=== PATIENT | female | born 1990 | race Caucasian/White ===

== ENCOUNTER 2019-08-28 10:13 | Outpatient (CLI) | payer OTHER ==
[2019-08-28 10:07] VITALS: BP 120/67
== END 2019-08-28 11:50 | disposition home or self-care (01) ==
LOC: LDOP 10:13
PROVIDERS: ATTEND Student in an Organized Health Care Education/Training Program
DX: O26.893 Other specified pregnancy related conditions, third trimester (principal); Z3A.37 37 weeks gestation of pregnancy
CPT/HCPCS: 59025; 84112; 99201; G0463

== ENCOUNTER 2019-09-07 01:25 | Inpatient (IN) | payer OTHER ==
[~2019-09-07] VITALS: Ht 165.1 cm; Wt 91.0 kg
[2019-09-07] MEDS ORDERED: FENTANYL/BUPIV./NS/PF 250 ML EPIDCONT SCH ×2 (03:38→04:22)
[2019-09-07] MEDS ORDERED: LACTATED RINGERS 1,000 ML IV SCH ×2 (03:38→04:22)
[2019-09-07] MEDS ORDERED: D5%-LACTATED RINGERS 1,000 ML IV SCH (03:38)
[2019-09-07] MEDS ORDERED: OXYTOCIN 30U/ 0.9% NaCL 500ML 500 ML IV PRN (03:38)
[2019-09-07] MEDS ORDERED: OXYTOCIN 30U/ 0.9% NaCL 500ML 500 ML IV ONE (03:38)
[2019-09-07] MEDS ORDERED: NEWBORN KIT ONE (03:47)
[2019-09-07] MEDS ORDERED: OXYTOCIN 30U/ 0.9% NaCL 500ML 500 ML ONE (03:48)
[2019-09-07] MEDS ORDERED: FENTANYL PF 100 MCG/2ML IVPush PRN (04:00)
[2019-09-07] MEDS ORDERED: TERBUTALINE 1 MG/ML, 1ML SQ PRN (04:00)
[2019-09-07] MEDS ORDERED: FENTANYL PF 100 MCG/2ML IV PRN (04:00)
[2019-09-07] MEDS ORDERED: PLEASE ENTER HEIGHT AND WEIGHT MC SCH (04:00)
[2019-09-07] MEDS ORDERED: TERBUTALINE 1 MG/ML, 1ML IVPush PRN (04:00)
[2019-09-07] MEDS ORDERED: ONDANSETRON 2MG/ML, 2ML IVPush PRN (04:00)
[2019-09-07] MEDS ORDERED: LACTATED RINGERS 500 ML IVBOLUS PRN (04:00)
[2019-09-07] MEDS ORDERED: CALCIUM CARBONATE 500 MG TAB.CHEW PO PRN (04:00)
[2019-09-07 04:06] LABS: BASOPHILS # (AUTO) 0.05 x10^3/uL (0-0.1); BASOPHILS % (AUTO) 0 % (0-1); EOSINOPHILS # (AUTO) 0.13 x10^3/uL (0-0.4); EOSINOPHILS % (AUTO) 1 % (1-7); LYMPHOCYTES # (AUTO) 1.36 x10^3/uL (1-3.4); LYMPHOCYTES % (AUTO) 10 % (22-44); MD NO; MEAN CORPUSCULAR HEMOGLOBIN 31.2 pg (27.0-34.8); MEAN CORPUSCULAR VOLUME 94.4 fL (80-100); MEAN PLATELET VOLUME 8.8 fL (7.4-10.4); MONOCYTES # (AUTO) 0.79 x10^3/uL (0.2-0.8); MONOCYTES % (AUTO) 6 % (2-9); NEUTROPHILS # (AUTO) 11.24 x10^3/uL (1.8-6.8); NEUTROPHILS % (AUTO) 83 % (42-75); PLATELET COUNT 262 x10^3/uL (130-400); RED BLOOD COUNT 4.38 x10^6/uL (3.82-5.3); RED CELL DISTRIBUTION WIDTH 13.3 % (9.6-15.2)
[2019-09-07] MEDS ORDERED: BUPIVACAINE 0.25% ONE ×2 (04:28→04:31)
[2019-09-07] MEDS ORDERED: NALOXONE 0.4 MG/ML, 1ML IVPush PRN (04:30)
[2019-09-07] MEDS ORDERED: EPHEDRINE 50 MG/ML, 1ML IVPush PRN (04:30)
[2019-09-07] MEDS ORDERED: FENTANYL PF 500 MCG, BUPIVACAINE/PF 0.5%, 30ML 62.5 ML in SODIUM CHLORIDE 0.9% 177.5 ML EPIDCONT SCH (04:30)
[2019-09-07] MEDS ORDERED: LACTATED RINGERS 1,000 ML IVBOLUS PRN (04:30)
[2019-09-07] MEDS: OXYTOCIN 30U/ 0.9% NaCL 500ML 500 ML IV SCH ×2 (11:07→21:07)
[2019-09-07] MEDS ORDERED: ONDANSETRON 2MG/ML, 2ML IV PRN (11:30)
[2019-09-07] MEDS ORDERED: OXYcodone/APAP 5/325MG TABLET PO PRN ×2 (11:30)
[2019-09-07] MEDS ORDERED: METOCLOPRAMIDE 5 MG/ML, 2ML IV PRN (11:30)
[2019-09-07] MEDS ORDERED: BISACODYL 10 MG SUPP PR PRN (11:30)
[2019-09-07] MEDS ORDERED: ACETAMINOPHEN 325 MG TABLET PO PRN (11:30)
[2019-09-07] MEDS ORDERED: METHYLERGONOVINE 0.2 MG/ML IM PRN (11:30)
[2019-09-07] MEDS ORDERED: GLYCERIN ADULT SUPP PR PRN (11:30)
[2019-09-07] MEDS ORDERED: IBUPROFEN 800 MG TABLET PO PRN (11:30)
[2019-09-07] MEDS ORDERED: CARBOPROST TROMETHAMINE 250 MCG/ML, 1ML IM PRN (11:30)
[2019-09-07] MEDS ORDERED: MISOPROSTOL 200 MCG TABLET PR PRN (11:30)
[2019-09-07] MEDS ORDERED: SIMETHICONE 80 MG CHEW TAB PO PRN (11:30)
[2019-09-07] MEDS ORDERED: IBUPROFEN 600 MG TABLET ONE (11:45)
[2019-09-07] MEDS: IBUPROFEN 600 MG TABLET PO PRN ×3 (11:47→23:55)
[2019-09-07 13:05] VITALS: BP 107/69
[2019-09-07 17:15] VITALS: BP 103/64
[2019-09-07 19:20] VITALS: BP 103/62
[2019-09-07 19:58] LABS: BASOPHILS % (AUTO) 0 % (0-1); EOSINOPHILS # (AUTO) 0.05 x10^3/uL (0-0.4); EOSINOPHILS % (AUTO) 1 % (1-7); LYMPHOCYTES % (AUTO) 12 % (22-44); MD NO; MEAN CORPUSCULAR HGB CONC 33.1 g/dL (32.4-35.8); MEAN CORPUSCULAR VOLUME 93.6 fL (80-100); MEAN PLATELET VOLUME 8.5 fL (7.4-10.4); MONOCYTES # (AUTO) 0.75 x10^3/uL (0.2-0.8); MONOCYTES % (AUTO) 7 % (2-9); NEUTROPHILS # (AUTO) 9.05 x10^3/uL (1.8-6.8); NEUTROPHILS % (AUTO) 80 % (42-75); PLATELET COUNT 213 x10^3/uL (130-400); RED BLOOD COUNT 3.75 x10^6/uL (3.82-5.3); RED CELL DISTRIBUTION WIDTH 13.5 % (9.6-15.2)
[2019-09-07] MEDS: DOCUSATE 100 MG CAPSULE PO PRN (20:55)
[2019-09-07] MEDS ORDERED: RHOGAM FROM BLOOD BANK 1 NOTE EA IM/IV ONE (21:00)
[2019-09-07 23:44] VITALS: BP 117/68
[2019-09-08 03:59] VITALS: BP 106/65
[2019-09-08 08:15] VITALS: BP 120/80
[2019-09-08] MEDS ORDERED: PRENATAL VIT/IRON/FA 1 EACH TABLET PO SCH (09:00)
[2019-09-08] MEDS: IBUPROFEN 600 MG TABLET PO PRN ×2 (09:01→15:28)
[2019-09-08] MEDS: DOCUSATE 100 MG CAPSULE PO PRN (09:01)
[2019-09-08] MEDS ORDERED: IBUP-1222 PO ×2 (11:04→11:05)
== END 2019-09-08 15:56 | disposition home or self-care (01) | DRG 807 ==
LOC: LDOP 01:25 → LDIP 03:38 → 2NW 12:57
PROVIDERS: ADMIT Student in an Organized Health Care Education/Training Program; ATTEND Student in an Organized Health Care Education/Training Program
PROC: 10E0XZZ Delivery of Products of Conception, External Approach (ICD-10-PCS; principal; 2019-09-07)
PROC: 0HQ9XZZ Repair Perineum Skin, External Approach (ICD-10-PCS; 2019-09-07)
PROC: 3E0R3BZ Introduction of Anesthetic Agent into Spinal Canal, Percutaneous Approach (ICD-10-PCS; 2019-09-07)
PROC: 00HU33Z Insertion of Infusion Device into Spinal Canal, Percutaneous Approach (ICD-10-PCS; 2019-09-07)
PROC: 3E0234Z Introduction of Serum, Toxoid and Vaccine into Muscle, Percutaneous Approach (ICD-10-PCS; 2019-09-07)
DX: O77.0 Labor and delivery complicated by meconium in amniotic fluid (principal); Z37.0 Single live birth; J45.909 Unspecified asthma, uncomplicated; O70.0 First degree perineal laceration during delivery; O99.52 Diseases of the respiratory system complicating childbirth; Z3A.39 39 weeks gestation of pregnancy; Z82.49 Family history of ischemic heart disease and other diseases of the circulatory system; Z83.3 Family history of diabetes mellitus
CPT/HCPCS: 36415; S0020; 85025; 85461; 86850; 86900; G0378; J2790; J3010; J3490; J7120; J2590; J7050

== ENCOUNTER 2019-11-26 13:12 | Emergency (ER) | payer OTHER ==
[~2019-11-26] VITALS: Ht 165.1 cm; Wt 79.1 kg
[~2019-11-26 13:12] MED LIST: IBUP-1222 PO
[2019-11-26 14:49] LABS: BASOPHILS # (AUTO) 0.03 x10^3/uL (0-0.1); BASOPHILS % (AUTO) 1 % (0-1); EOSINOPHILS # (AUTO) 0.17 x10^3/uL (0-0.4); EOSINOPHILS % (AUTO) 3 % (1-7); LYMPHOCYTES # (AUTO) 1.37 x10^3/uL (1-3.4); LYMPHOCYTES % (AUTO) 25 % (22-44); MD NO; MEAN CORPUSCULAR HEMOGLOBIN 30.9 pg (27.0-34.8); MEAN CORPUSCULAR HGB CONC 33.3 g/dL (32.4-35.8); MEAN CORPUSCULAR VOLUME 92.8 fL (80-100); MEAN PLATELET VOLUME 8.2 fL (7.4-10.4); MONOCYTES # (AUTO) 0.34 x10^3/uL (0.2-0.8); MONOCYTES % (AUTO) 6 % (2-9); NEUTROPHILS # (AUTO) 3.69 x10^3/uL (1.8-6.8); NEUTROPHILS % (AUTO) 66 % (42-75); PLATELET COUNT 309 x10^3/uL (130-400); RED BLOOD COUNT 4.49 x10^6/uL (3.82-5.3); RED CELL DISTRIBUTION WIDTH 12.9 % (9.6-15.2)
[2019-11-26 14:55] LABS: ALBUMIN 4.2 g/dL (3.4-5.0); ANION GAP 7 mmol/L (5-15); CALCIUM 9.1 mg/dL (8.5-10.1); CHLORIDE 108 mmol/L (98-107)
[2019-11-26 14:58] LABS: ALANINE AMINOTRANSFERASE 52 U/L (12-78); ALKALINE PHOSPHATASE 94 U/L (45-117); BILIRUBIN,TOTAL 1.1 mg/dL (0.2-1.0); CREATININE 0.94 mg/dL (0.55-1.02); TOTAL PROTEIN 7.7 g/dL (6.4-8.2)
--- NOTE | 2019-11-26 16:15 | NUR ---
Pt ambulatory to ED room 19 in NAD at this time.
--- NOTE | 2019-11-26 16:44 | NUR ---
MD Benitez to bedside to assess pt at this time.
[2019-11-26 17:26] VITALS: BP 93/55
== END 2019-11-26 17:33 | disposition home or self-care (01) ==
LOC: ED 17:20
DX: R20.2 Paresthesia of skin (principal); H53.8 Other visual disturbances; R51 Headache
CPT/HCPCS: 36415; 70450; 80053; 84703; 85025; 99284